=== PATIENT | female | born 1950 | race Two or more races ===

== ENCOUNTER → 2017-06-22 | Outpatient (CLI) | payer MEDICARE, OTHER ==
--- NOTE | 2017-06-22 16:50 | RAD ---
CT lumbar spine without contrast, 06/22/2017: HISTORY: Low back pain radiating down the left side Noncontrast scans were obtained with multiplanar reconstructions produced. No fracture or destructive bony lesion is seen. There is a prominent Schmorl's node along the inferior endplate at L1. There is a vacuum disc L1-2 with disc space narrowing and marginal spurring. There is moderate broad-based posterior disc bulging. There is a slight retrolisthesis. The central spinal canal is well preserved with only mild bilateral inferior foraminal narrowing at this level. At L2-3 there is minimal posterior annular bulging which is most prominent laterally on both sides. The central spinal canal is well maintained. There is mild inferior foraminal narrowing bilaterally. At L3-4 there is moderate broad-based posterior disc bulging. There are moderate degenerative changes involving the facet joints bilaterally with posterior ligamentous thickening. The central spinal canal is well maintained. There is moderate bilateral foraminal encroachment. At L4-5 there are extensive degenerative changes involving the facet joints with vacuum phenomena at the facet joints. There is associated posterior ligamentous thickening and mild anterolisthesis. There is also a prominent vacuum phenomena at the narrowed disc space with moderate broad-based posterior disc protrusion which is most prominent laterally on the right. The combination of findings is causing mild central spinal stenosis and severe foraminal encroachment bilaterally. At L5-S1 there are also severe degenerative changes involving the facet joints. There is moderate broad-based posterior disc bulging. The central spinal canal is well preserved. There is mild to moderate foraminal narrowing, worse on the right. IMPRESSION: 1. Moderate multilevel degenerative change as described above. 2. Mild anterolisthesis at L4-5 due to extensive facet joint arthropathy which in conjunction with broad-based posterior disc protrusion is causing mild central spinal stenosis and severe bilateral foraminal narrowing at that level. PQRS Compliance Statement: One or more of the following individualized dose reduction techniques were utilized for this examination: 1. Automated exposure control 2. Adjustment of the mA and/or kV according to patient size 3. Use of iterative reconstruction technique Electronically signed by: Odell Jacob MD (06/22/2017 4:46 PM) [facility]
--- NOTE | 2017-06-28 09:23 | RAD ---
EXAM: DIGITAL SCREEN BILAT W/CAD. HISTORY: Screening. COMPARISON: Outside mammograms March 10, 2008. FINDINGS: Digital mammography was performed. Computer-aided detection (CAD) was utilized. 3-D tomographic imaging was performed of both breasts in the CC projection. Patient was unable to complete MLO 3-D tomographic imaging. The breast parenchyma demonstrates scattered fibroglandular densities (tissue density B). No dominant suspicious mass, suspicious microcalcifications, or architectural distortion is identified. Scattered, benign-appearing calcifications are present within both breasts. Both breasts demonstrate multiple, small, well-circumscribed intraparenchymal masses which are favored to represent intraparenchymal lymph nodes. IMPRESSION: No mammographic evidence of malignancy. BI-RADS CATEGORY: 2 BENIGN FINDING(S) RECOMMENDED FOLLOW-UP: 12M 12 MONTH FOLLOW-UP PQRS compliance statement: Patient information was entered into a reminder system with a target due date for the next mammogram. Mammography is a sensitive method for finding small breast cancers, but it does not detect them all and is not a substitute for careful clinical examination. A negative mammogram does not negate a clinically suspicious finding and should not result in delay in biopsying a clinically suspicious abnormality. "Our facility is accredited by the [employer] Mammography Program."
== END | disposition home or self-care (01) ==
LOC: MAMMO 09:05
PROVIDERS: ATTEND Family Medicine
DX: Z12.31 Encounter for screening mammogram for malignant neoplasm of breast (principal); M43.16 Spondylolisthesis, lumbar region; M48.061 Spinal stenosis, lumbar region without neurogenic claudication; M51.27 Other intervertebral disc displacement, lumbosacral region
CPT/HCPCS: 72131; 77067

== ENCOUNTER → 2017-07-27 | Outpatient (CLI) | payer MEDICARE, OTHER ==
[~2017-07-27] MED LIST: BUPIVACAINE MPF 0.25% 10 ML VIAL. ONE; DEXAMETHASONE SOD PHOS 4 MG/ML VIAL ONE; IOHEXOL 300 MG/ML 50 ML VIAL. ONE; LIDOCAINE 1% PF 30 ML VIAL. ONE
== END ==
LOC: SURG 13:32
PROVIDERS: ATTEND Anesthesiology Pain Medicine
DX: M54.16 Radiculopathy, lumbar region (principal); I10 Essential (primary) hypertension; E11.9 Type 2 diabetes mellitus without complications; Z87.39 Personal history of other diseases of the musculoskeletal system and connective tissue; Z90.3 Acquired absence of stomach [part of]
CPT/HCPCS: 64483; 64484; J1100; J2001; J3490; Q9967

== ENCOUNTER → 2018-01-24 | Outpatient (CLI) | payer MEDICARE, OTHER ==
[~2018-01-24] MED LIST changes: +0.9 % SODIUM CHLORIDE 10 ML VIAL ONE; -BUPIVACAINE MPF 0.25% 10 ML VIAL. ONE; -DEXAMETHASONE SOD PHOS 4 MG/ML VIAL ONE; +methylPREDNISolone ACETATE 80 MG/ML VIAL. ONE
== END | disposition home or self-care (01) ==
LOC: SURG 14:38
PROVIDERS: ATTEND Anesthesiology Pain Medicine
DX: M54.16 Radiculopathy, lumbar region (principal); M47.816 Spondylosis without myelopathy or radiculopathy, lumbar region; M54.5 Low back pain; I10 Essential (primary) hypertension; R01.1 Cardiac murmur, unspecified; M79.605 Pain in left leg; M19.90 Unspecified osteoarthritis, unspecified site; E11.9 Type 2 diabetes mellitus without complications; Z98.84 Bariatric surgery status; Z98.890 Other specified postprocedural states; Z79.899 Other long term (current) drug therapy
CPT/HCPCS: 62323; J1040; J2001; Q9967